=== PATIENT | female | born 1995 | race Two or more races ===

== ENCOUNTER 2023-09-26 06:49 | Inpatient (IN) | payer MEDICAID ==
[~2023-09-26] VITALS: Ht 157.5 cm; Wt 79.5 kg
[2023-09-26 08:37] LABS: Urine Bacteria FEW /hpf (None Seen); Urine Blood Negative /uL (Negative); Urine Clarity Clear (Clear); Urine Color Light-Yellow (Yellow); Urine Protein, UAD Negative (Negative); Urine Specific Gravity 1.003 (1.001-1.035); Urine Urobilinogen Normal (Negative); Urine WBC <1 /hpf (0 - 5)
[2023-09-26 08:48] LABS: Basophils # (auto) 0 10 ^3/uL (0-0.2); Basophils % (auto) 0.2 % (0.0-2.0); Eosinophils # (auto) 0.1 10 ^3/uL (0-0.8); Eosinophils % (auto) 0.4 % (0.0-7.0); Hematocrit 45.8 % (36.0-46.0); Hemoglobin 15.4 g/dL (12.2-16.2); Lymphocytes # (auto) 1.1 10 ^3/uL (0.4-5.4); Lymphocytes % (auto) 8.5 % (10.0-50.0); Mean Corpuscular Hemoglobin 30.4 pg (28.0-32.0); Mean Corpuscular Hgb Conc. 33.6 g/dL (32.0-36.0); Mean Corpuscular Volume 90.4 fL (80.0-100.0); Monocytes # (auto) 0.4 10 ^3/uL (0-1.3); Monocytes % (auto) 2.9 % (0.0-12.0); Neutrophils # (auto) 11.6 10 ^3/uL (1.6-8.6); Red Blood Cells 5.07 10^6/uL (4.0-5.20); White Blood Cell 13.2 10^3/uL (4.4-10.8)
[2023-09-26 08:56] LABS: Chloride 103 mmol/L (98-107); Potassium 3.7 mmol/L (3.5-5.1); Sodium 133 mmol/L (136-145)
[2023-09-26 08:57] LABS: Anion Gap 8 (5-15); Carbon Dioxide 22 mmol/L (20-30)
[2023-09-26 08:58] LABS: Calcium 9.9 mg/dL (8.7-10.4)
[2023-09-26 09:03] LABS: BUN/Creatinine Ratio 13.2 (10.0-20.0); Blood Urea Nitrogen 9 mg/dL (9-23); Glucose 104 mg/dL (74-106)
[2023-09-26 09:17] VITALS: PULSE 91; RESP 16; O2SAT 97
[2023-09-26] MEDS: SODIUM CHLORIDE 0.9% 1,000 ML IV ONE ×2 (11:55→14:00)
[2023-09-26] MEDS: cefTRIAXone 1GM/50ML D5W 50 ML IV ONE (11:57)
[2023-09-26] MEDS: ONDANSETRON HCL 4 MG/2 ML VIAL IV ONE (11:57)
[2023-09-26] MEDS: MORPHINE SULFATE 4 MG/ML SYR/VIAL IV ONE (11:57)
[2023-09-26] MEDS: metroNIDAZOLE 500MG/100ML 100 ML IV ONE (14:00)
[2023-09-26] MEDS: DICYCLOMINE HCL 10 MG CAP PO ONE (14:49)
[2023-09-26] MEDS: PANTOPRAZOLE 40 MG/10 ML VIAL INJ IV ONE (14:50)
[2023-09-26] MEDS: metroNIDAZOLE 500MG/100ML 100 ML IV SCH (14:58)
[2023-09-26 15:02] LABS: Erythrocyte Sedimentation Rate 2 mm/hr (0-20)
[2023-09-26] MEDS: ACETAMINOPHEN 325 MG TAB PO PRN (15:52)
[2023-09-26] MEDS: SODIUM CHLORIDE 0.9% 1,000 ML IV SCH (16:34)
[2023-09-26 17:33] VITALS: BP 115/61; PULSE 66; RESP 16; TEMP 98.1; O2SAT 98
[2023-09-26 20:00] VITALS: RESP 16
[2023-09-26 21:00] VITALS: BP 124/70; PULSE 73; RESP 20; TEMP 97.9; O2SAT 99
[2023-09-27] VITALS (7 sets, daily range): BP systolic 99–130; BP diastolic 59–69; PULSE 49–70; RESP 15–18; TEMP 98–98.5; O2SAT 96–100
[2023-09-27] MEDS: DICYCLOMINE HCL 10 MG CAP PO PRN (00:52)
[2023-09-27] MEDS: HYDROcodone-ACET 5/325MG TAB PO PRN (00:55)
[2023-09-27 07:05] LABS: Basophils # (auto) 0 10 ^3/uL (0-0.2); Basophils % (auto) 0.3 % (0.0-2.0); Eosinophils # (auto) 0.1 10 ^3/uL (0-0.8); Eosinophils % (auto) 2.4 % (0.0-7.0); Hematocrit 37.3 % (36.0-46.0); Hemoglobin 12.5 g/dL (12.2-16.2); Lymphocytes # (auto) 1.5 10 ^3/uL (0.4-5.4); Lymphocytes % (auto) 35.4 % (10.0-50.0); Mean Corpuscular Hemoglobin 30.6 pg (28.0-32.0); Mean Corpuscular Hgb Conc. 33.6 g/dL (32.0-36.0); Mean Corpuscular Volume 91.1 fL (80.0-100.0); Monocytes # (auto) 0.4 10 ^3/uL (0-1.3); Monocytes % (auto) 9.3 % (0.0-12.0); Neutrophils # (auto) 2.3 10 ^3/uL (1.6-8.6); Neutrophils % (auto) 52.6 % (37.0-80.0); Nucleated Red Blood Cells % 0.1 %; Red Blood Cells 4.09 10^6/uL (4.0-5.20); Red Cell Distribution Width 12.9 % (11.8-14.3); White Blood Cell 4.4 10^3/uL (4.4-10.8)
[2023-09-27 07:23] LABS: Alanine Aminotransferase 18 U/L (7-40); Alkaline Phosphatase 50 U/L (46-116); Anion Gap 5 (5-15); Aspartate Aminotransferase 8 U/L (13-40); Blood Urea Nitrogen 6 mg/dL (9-23); Calcium 8.5 mg/dL (8.7-10.4); Carbon Dioxide 25 mmol/L (20-30); Chloride 110 mmol/L (98-107); Glucose 90 mg/dL (74-106); Potassium 3.8 mmol/L (3.5-5.1); Sodium 140 mmol/L (136-145)
[2023-09-27 07:25] LABS: Albumin 3.7 g/dL (3.2-4.8); Bilirubin, Total 0.7 mg/dL (0.2-1.0); Total Protein 5.7 g/dL (5.7-8.2)
[2023-09-27] MEDS: cefTRIAXone 1GM/50ML D5W 50 ML IV SCH (10:40)
[2023-09-27] MEDS: PANTOPRAZOLE 40 MG/10 ML VIAL INJ IV SCH (10:40)
[2023-09-28 05:00] VITALS: BP 106/59; PULSE 59; RESP 16; TEMP 98.1; O2SAT 97
[2023-09-28 07:26] LABS: Basophils # (auto) 0 10 ^3/uL (0-0.2); Basophils % (auto) 0.4 % (0.0-2.0); Eosinophils # (auto) 0.2 10 ^3/uL (0-0.8); Eosinophils % (auto) 4.7 % (0.0-7.0); Hematocrit 37.2 % (36.0-46.0); Hemoglobin 12.6 g/dL (12.2-16.2); Lymphocytes # (auto) 1.8 10 ^3/uL (0.4-5.4); Lymphocytes % (auto) 48.9 % (10.0-50.0); Mean Corpuscular Volume 91.2 fL (80.0-100.0); Monocytes # (auto) 0.4 10 ^3/uL (0-1.3); Monocytes % (auto) 11.2 % (0.0-12.0); Neutrophils # (auto) 1.3 10 ^3/uL (1.6-8.6); Neutrophils % (auto) 34.8 % (37.0-80.0); Red Blood Cells 4.08 10^6/uL (4.0-5.20); Red Cell Distribution Width 12.6 % (11.8-14.3); White Blood Cell 3.6 10^3/uL (4.4-10.8)
[2023-09-28 07:36] LABS: Alanine Aminotransferase 21 U/L (7-40); Alkaline Phosphatase 46 U/L (46-116); Anion Gap 7 (5-15); Calcium 8.8 mg/dL (8.7-10.4); Carbon Dioxide 24 mmol/L (20-30); Chloride 111 mmol/L (98-107); Glucose 82 mg/dL (74-106); Potassium 3.7 mmol/L (3.5-5.1); Sodium 142 mmol/L (136-145)
[2023-09-28 07:37] LABS: Albumin 3.5 g/dL (3.2-4.8); Aspartate Aminotransferase 16 U/L (13-40); Bilirubin, Total 0.3 mg/dL (0.2-1.0); Total Protein 5.8 g/dL (5.7-8.2)
[2023-09-28 07:44] LABS: BUN/Creatinine Ratio 7.6 (10.0-20.0); Blood Urea Nitrogen < 5 mg/dL (9-23)
[2023-09-28 08:00] VITALS: PULSE 60; RESP 20; O2SAT 99
[2023-09-28] MEDS: ONDANSETRON HCL 4 MG/2 ML VIAL IV PRN (08:43)
[2023-09-28 09:00] VITALS: BP 108/64; PULSE 60; RESP 20; TEMP 98.5; O2SAT 99
[2023-09-28] MEDS ORDERED: PANT40TA2 PO (11:27)
[2023-09-28 12:30] VITALS: BP 108/64; PULSE 60; RESP 20; TEMP 36.9; O2SAT 99
[2023-09-28 13:00] VITALS: BP 113/65; PULSE 49; RESP 16; TEMP 98.3; O2SAT 98
== END 2023-09-28 14:50 | disposition home or self-care (01) | DRG 249 ==
LOC: ER 06:49 → OVERFLOW 13:56 → WEST WING 17:21
PROVIDERS: ADMIT Internal Medicine; ATTEND Internal Medicine
DX: K52.9 Noninfective gastroenteritis and colitis, unspecified (principal); E66.01 Morbid (severe) obesity due to excess calories; K42.9 Umbilical hernia without obstruction or gangrene; Z68.30 Body mass index [BMI] 30.0-30.9, adult
CPT/HCPCS: 36415; 74176; 80048; 80053; 81001; 83605; 85025; 85652; 87040; 87045; 87177; 87427; 87493; G0378; J2405; J2470; J3490

== ENCOUNTER 2024-01-27 14:10 | Emergency (ER) | payer MEDICAID ==
[~2024-01-27] VITALS: Ht 157.5 cm; Wt 77.0 kg
[~2024-01-27 14:10] MED LIST: PANT40TA2 PO
--- NOTE | 2024-01-27 14:38 | ED.PDOC ---
GI ASSESSMENT HPI Comments 28y F who presents to the ED for chief complaint of abdominal pain. Pt states she was at work today and states she started to have abdominal pain and came to the ED for further evaluation. Pt states her pain is epigastric in location, radiating to the back, constant, rating the pain 8/10, with no associated exacerbating or relieving factors. Pt has associated nausea and vomiting with chills but denies diarrhea, fever, dysuria, hematuria or hematemesis. Pt states she has tried to eat but states she has not been able to keep anything down. Pt denies these symptoms in the past. Pt denies any other symptoms at this time. Chief Complaint: Abdominal Pain Time Seen by MD: 14:36 Reviewed Notes: Medications Allergies: Coded Allergies: NO KNOWN ALLERGIES (Unverified , 09/26/23) Home Meds Active Scripts Ondansetron Odt 4MG Tab (ZOFRAN PO) 4 Mg Tb, 4 MG PO Q8HP PRN for 5 Days, #15 TAB ODT TAB-DISSOLVE IN MOUTH, THEN SWALLOW Prov:ISABEL HOOVER MD 01/27/24 Pantoprazole Sodium Sesquihydr (Protonix) 40 Mg Tab, 40 MG PO DAILY for 30 Days, #30 TAB Prov:ISABEL HOOVER MD 01/27/24 Information Source: Patient Mode of Arrival: Ambulatory Brought in by: self Timing: Hours Duration: Since onset Prehospital treatment: None Quality: Cramping Vomitus: Firm Stool: Normal Severity: Moderate Recent: Possible spoiled food Recent Hx of: None Pain Location: Diffuse Modifying Factors: Nothing Associated sign and symptoms: Nausea, Vomiting, Abdominal Pain Past Medical History PAST MEDICAL HISTORY: Denies Surgical History: Denies all surgeries 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 PARTY PLAN SALES DIRECTOR Hx Family History Family History: Family hx of DM, Family hx of heart [place] Social History Smoker: Non-Smoker Alcohol: Denies ETOH Use Drugs: Denies Drug Use Lives In: Home Constitutional: reports: chills; denies: diaphoresis, fatigue, fever, malaise, sweats, weakness, others EENTM: denies: blurred vision, double vision, ear bleeding, ear discharge, ear drainage, ear pain, ear ringing, eye pain, eye redness, hearing loss, mouth pain, mouth swelling, nasal discharge, nose bleeding, nose congestion, nose pain, photophobia, tearing, throat pain, throat swelling, voice changes, others Respiratory: denies: cough, hemoptysis, orthopnea, SOB at rest, shortness of breath, SOB with excertion, stridor, wheezing, others Cardiovascular: denies: chest pain, dizzy spells, diaphoresis, Dyspnea on exertion, edema, irregular heart beat, left arm pain, lightheadedness, palpitations, PND, syncope, others Gastrointestinal: reports: abdominal pain, nausea, vomiting; denies: abdomen distended, blood streaked bowels, constipated, diarrhea, dysphagia, difficulty swallowing, hematemesis, melena, poor appetite, poor fluid intake, rectal bleeding, rectal pain, others Genitourinary: denies: abnormal vagina bleeding, burning, dyspareunia, dysuria, flank pain, frequency, hematuria, incontinence, pain, , vagina discharge, urgency, others Neurological: denies: dizziness, fainting, headache, left sided numbness, left sided weakness, numbness, paresthesia, pre-existing deficit, right sided numbness, right sided weakness, seizure, speech problems, tingling, tremors, wea kness, others Musculoskeletal: denies: back pain, gout, joint pain, joint swelling, muscle pain, muscle stiffness, neck pain, others Integumetry: denies: bruises, change in color, change in hair/nails, dryness, l aceration, lesions, lumps, rash, wounds, others Allergic/Immunocompromised: denies: Difficulty Healing, Frequent Infections, Hives, Itching, others Hematologic/Lymphatic: denies: anemia, blood clots, easy bleeding, easy bruising, swollen glands, others Endocrine: denies: excessive hunger, excessive sweating, excessive thirst, excessive urination, flushing, intolerance to cold, intolerance to heat, unexplained weight gain, unexplained weight loss, others Psychiatric: denies: anxiety, bipolar disorder, depression, hopeless, panic disorder, schizophrenia, sleepless, suicidal, others All Other Systems: Reviewed and Negative Physical Exam General Appearance: Mild Distress HEENT: Normal ENT Inspection, Pharynx Normal, TMs Normal Neck: Full Range of Motion, Non-Tender, Normal, Normal Inspection Respiratory: Chest Non-Tender, Lungs Clear, No Accessory Muscle Use, No Respiratory Distress, Normal Breath Sounds Cardiovascular: No Edema, No JVD, No Murmur, No Gallop, Normal Peripheral Pulses, Regular Rate/Rhythm Breast Exam: Deferred Gastrointestinal: Epigastric, No Organomegaly, No Pulsatile Mass, Normal Bowel Sounds, Soft, Tenderness Genitalia: Deferred Pelvic: Deferred Rectal: Deferred Extremities: No calf tenderness, Normal capillary refill, Normal inspection, Normal range of motion, Non-tender, No pedal edema Musculoskeletal : Apperance: Normal Neurologic: Alert, stamp pad finisher II-XII nml as Tested, No Motor Deficits, Normal Affect, Normal Mood, No Sensory Deficits Cerebellar Function: Normal Reflexes: Normal Skin: Dry, Normal Color, Warm Lymphatic: No Adenopathy Was a procedure done? Was a procedure done?: No GI differential Dx Differential Diagnosis: Appendicitis, Esophagitis, Gastritis/PUD, Gastroenteritis, Pancreatitis, UTI, Dehydration, Electrolyte Imbalance, Food Poisoning, Bacterial, Viral X-Ray, Labs, Meds, VS Vital Signs Date Time Temp Pulse Resp B/P (MAP) Pulse Ox O2 Delivery O2 Flow Rate FiO2 01/27/24 14:30 99.3 111 20 131/79 (96) 98 Lab Test 01/27/24 14:47 01/27/24 14:25 Range/Units White Blood Count 10.3 4.4-10.8 10^3/uL Red Blood Count 5.01 4.0-5.20 10^6/uL Hemoglobin 15.3 12.2-16.2 g/dL Hematocrit 45.2 36.0-46.0 % Mean Corpuscular Volume 90.3 80.0-100.0 fL Mean Corpuscular Hemoglobin 30.6 28.0-32.0 pg Mean Corpuscular Hemoglobin Concent 33.9 32.0-36.0 g/dL Red Cell Distribution Width 13.4 11.8-14.3 % Platelet Count 309 140-450 10^3/uL Mean Platelet Volume 7.9 6.9-10.8 fL Neutrophils (%) (Auto) 80.5 H 37.0-80.0 % Lymphocytes (%) (Auto) 14.4 10.0-50.0 % Monocytes (%) (Auto) 4.7 0.0-12.0 % Eosinophils (%) (Auto) 0.2 0.0-7.0 % Basophils (%) (Auto) 0.2 0.0-2.0 % Neutrophils # (Auto) 8.2 1.6-8.6 10 ^3/uL Lymphocytes # (Auto) 1.5 0.4-5.4 10 ^3/uL Monocytes # (Auto) 0.5 0-1.3 10 ^3/uL Eosinophils # (Auto) 0 0-0.8 10 ^3/uL Basophils # (Auto) 0 0-0.2 10 ^3/uL Nucleated Red Blood Cells 0.0 % Sodium Level 136 136-145 mmol/L Potassium Level 4.1 3.5-5.1 mmol/L Chloride Level 102 98-107 mmol/L Carbon Dioxide Level 25 20-31 mmol/L Anion Gap 9 5-15 Blood Urea Nitrogen 8 L 9-23 mg/dL Creatinine 0.63 0.550-1.02 mg/dL Glomerular Filtration Rate Calc 122 >90 mL/min BUN/Creatinine Ratio 12.7 10.0-20.0 Serum Glucose 88 74-106 mg/dL Calcium Level 11.0 H 8.7-10.4 mg/dL Total Bilirubin 1.1 H 0.2-1.0 mg/dL Aspartate Amino Transferase (AST) 10 L 13-40 U/L Alanine Aminotransferase (ALT) 23 7-40 U/L Alkaline Phosphatase 84 46-116 U/L Total Protein 7.6 5.7-8.2 g/dL Albumin 4.9 H 3.2-4.8 g/dL Lipase 39 12-53 U/L Beta HCG, Quantitative 1.6 1.5-4.2 mIU/mL Urine Color Colorless Yellow Urine Clarity Clear Clear Urine pH 6.0 5.0-9.0 Urine Specific [place] 1.004 1.001-1.035 Urine Protein Negative Negative Urine Ketones Negative Negative Urine Blood Negative Negative /uL Urine Nitrite Negative Negative Urine Bilirubin Negative Negative Urine Urobilinogen Normal Negative mg/dL Urine Leukocyte Esterase Negative Negative /uL Urine RBC <1 0 - 4 /hpf Urine WBC <1 0 - 5 /hpf Urine Squamous Epithelial Cells Few <5 /hpf Urine Bacteria Few H None Seen /hpf Urine Glucose Normal Normal mg/dL PROCEDURE(s): GBUS - GALLBLADDER IMPRESSION: 1. No sonographic evidence of gallstones or acute cholecystitis. 2. Mildly increased echogenicity of the liver, nonspecific, but most commonly seen in the setting of hepatic steatosis. The urine test is negative The patient's CBC and chemistry panel are within normal limits The patient was given a prescription for Protonix The patient was given a prescription for Zofran in his told to follow up with the primary care doctor Images Reviewed?: Images reviewed and evaluated by me Time of 1ST Reevaluation: 15:10 Reevaluation 1ST: Unchanged Patient Education/Counseling: Diagnosis, Treatment, Prognosis, Need For Follow Up Family Education/Counseling: No Family Present Additional Information - I reviewed the following notes from patient's past medical encounters: - The following tests were ordered, and results were reviewed by me: CBC, CMP, beta HCG, lipase,UA, gallbladder ultrasound - Additional information was gathered from interviewing the following independent Historian: none - I reviewed and agreed with the following test results read by other provider: radiologist - I discussed treatments and results with medical personnel and: patient Departure 1 Departure Time of Disposition: 15:56 Impression: Primary Impression: GERD (gastroesophageal reflux disease) Qualified Codes: K21.00 - Gastro-esophageal reflux disease with esophagitis, without bleeding Disposition: HOME / SELF CARE / HOMELESS Condition: Fair e-Prescriptions Ondansetron Odt 4MG Tab (ZOFRAN PO) 4 Mg Tb 4 MG PO Q8HP PRN for 5 Days, #15 TAB ODT TAB-DISSOLVE IN MOUTH, THEN SWALLOW Prov: ISABEL HOOVER MD 01/27/24 Pantoprazole Sodium Sesquihydr (Protonix) 40 Mg Tab 40 MG PO DAILY for 30 Days, #30 TAB Prov: ISABEL HOOVER MD 01/27/24 Discharged With: Self Critical Care Note Critical Care Time?: No Stability Stability form required: No Heart Score Heart Score: Heart Score Response (Comments) Value History N/A 0 EKG N/A 0 Age N/A 0 Risk Factors N/A 0 Troponin N/A 0 Total 0 I personally scribed for ISABEL HOOVER MD ([email or web address]) on 01/27/24 at 14:38. Electronically submitted by Apryl Doherty ([email or web address]). I personally scribed for ISABEL HOOVER MD ([email or web address]) on 01/27/24 at 14:40. Electronically submitted by Apryl Doherty ([email or web address]). I personally scribed for ISABEL HOOVER MD ([email or web address]) on 01/27/24 at 15:40. Electronically submitted by Apryl Doherty ([email or web address]). ISABEL HOOVER MD Jan 27, 2024 14:38
[2024-01-27 15:00] LABS: Basophils # (auto) 0 10 ^3/uL (0-0.2); Basophils % (auto) 0.2 % (0.0-2.0); Eosinophils # (auto) 0 10 ^3/uL (0-0.8); Eosinophils % (auto) 0.2 % (0.0-7.0); Hematocrit 45.2 % (36.0-46.0); Hemoglobin 15.3 g/dL (12.2-16.2); Lymphocytes # (auto) 1.5 10 ^3/uL (0.4-5.4); Lymphocytes % (auto) 14.4 % (10.0-50.0); Mean Corpuscular Hemoglobin 30.6 pg (28.0-32.0); Mean Corpuscular Hgb Conc. 33.9 g/dL (32.0-36.0); Mean Corpuscular Volume 90.3 fL (80.0-100.0); Monocytes # (auto) 0.5 10 ^3/uL (0-1.3); Monocytes % (auto) 4.7 % (0.0-12.0); Neutrophils # (auto) 8.2 10 ^3/uL (1.6-8.6); Neutrophils % (auto) 80.5 % (37.0-80.0); Platelet Count (auto) 309 10^3/uL (140-450); Red Blood Cells 5.01 10^6/uL (4.0-5.20); Red Cell Distribution Width 13.4 % (11.8-14.3); White Blood Cell 10.3 10^3/uL (4.4-10.8)
[2024-01-27 15:12] LABS: Urine Bacteria FEW /hpf (None Seen); Urine Blood Negative /uL (Negative); Urine Clarity Clear (Clear); Urine Color Colorless (Yellow); Urine Protein, UAD Negative (Negative); Urine Specific Gravity 1.004 (1.001-1.035); Urine Urobilinogen Normal (Negative); Urine WBC <1 /hpf (0 - 5)
[2024-01-27 15:18] LABS: Alanine Aminotransferase 23 U/L (7-40); Alkaline Phosphatase 84 U/L (46-116); Anion Gap 9 (5-15); BUN/Creatinine Ratio 12.7 (10.0-20.0); Bilirubin, Total 1.1 mg/dL (0.2-1.0); Carbon Dioxide 25 mmol/L (20-31); Chloride 102 mmol/L (98-107); Glucose 88 mg/dL (74-106); Lipase 39 U/L (12-53); Potassium 4.1 mmol/L (3.5-5.1); Sodium 136 mmol/L (136-145); Total Protein 7.6 g/dL (5.7-8.2)
[2024-01-27 15:22] LABS: Albumin 4.9 g/dL (3.2-4.8); Aspartate Aminotransferase 10 U/L (13-40); Blood Urea Nitrogen 8 mg/dL (9-23)
--- NOTE | 2024-01-27 15:23 | DVH ---
INDICATION: pain TECHNIQUE: Multiple real-time sonographic images were obtained of the right upper quadrant. COMPARISON: CT abdomen pelvis 09/26/2023 FINDINGS: The liver demonstrates mildly increased echogenicity without focal mass lesions. The liver measures 16.6 cm. There is no intrahepatic ductal dilatation. The common duct is not visualized. The gallbladder is without evidence of stone or sludge. The gallbladder wall measures 1 mm and is wi thin normal limits. Textile Machine Maintenance Mechanic notes negative sonographic Gaffney's sign. The right kidney measures 11.3 cm. The right kidney is normal in contour, size, and shape. The echo genicity is normal. There is no hydronephrosis. The visualized portions of the pancreas appear grossly normal. IMPRESSION: 1. No sonographic evidence of gallstones or acute cholecystitis. 2. Mildly increased echogenicity of the liver, nonspecific, but most commonly seen in the setting of hepatic steatosis. HS:Y
[2024-01-27] MEDS ORDERED: PANT40TA2 PO (15:43)
[2024-01-27] MEDS ORDERED: ZOFR4T PO (15:43)
[2024-01-27 16:06] VITALS: BP 126/72; PULSE 101; RESP 18; TEMP 99.3; O2SAT 96
== END 2024-01-27 16:08 | disposition home or self-care (01) ==
LOC: ER 14:10
DX: K21.9 Gastro-esophageal reflux disease without esophagitis (principal); R10.2 Pelvic and perineal pain; Z79.899 Other long term (current) drug therapy
CPT/HCPCS: 36415; 76705; 80053; 81001; 83690; 84702; 85025